=== PATIENT | male | born 1945 | race Caucasian/White ===

== ENCOUNTER 2016-09-12 13:05 | Emergency (ER) | payer OTHER ==
[2016-09-12 13:16] VITALS: BP 152/74; BMI 29.2
--- NOTE | 2016-09-12 14:23 | RAD ---
THORACIC SPINE RADIOGRAPHS CLINICAL HISTORY: 70-year-old male with pain in the mid back after lifting on Sunday. COMPARISON: None. FINDINGS: 3 views of the thoracic spine were obtained. Diffuse osteopenia with evidence of prior dionne tebroplasty at L1. No radiographic evidence of fracture or malalignment. The cervicothoracic junctio n is visualized on frontal radiographs only. Considering the limitations, vertebral body height and alignment are maintained. IMPRESSION: 1. No acute compression deformity or malalignment on screening thoracic spine radiographs. 2. Prior vertebroplasty at L1. Reported By:
[2016-09-12] MEDS ORDERED: DEMEROL INJ IM ONE (14:24)
[2016-09-12] MEDS ORDERED: ZOFRAN TAB 4 MG PO PRN (14:25)
== END 2016-09-12 14:45 | disposition home or self-care (01) ==
LOC: ER 13:20
DX: M54.5 Low back pain (principal)
CPT/HCPCS: 72072; 99282

== ENCOUNTER 2016-09-19 14:24 | Emergency (ER) | payer OTHER ==
[2016-09-19 14:29] VITALS: BP 160/85; BMI 29.5
[2016-09-19] MEDS ORDERED: DEMEROL INJ IM ONE (14:50)
--- NOTE | 2016-09-19 14:50 | DR.GENAD ---
HPI - PCP Primary Care Physician: stephanie - Complaint/Symptoms Chief Complaint:: sever pain in the lili. he was [place] - Nurses notes reviewed Nurses Notes Review: Yes - Source History Provided: Patient - Mode of Arrival Mode of Arrival: Ambulatory - Timing Onset of Chief Complaint: 09/16/16 Came on: Gradually - Duration Duration: Intermittent Duration: Weeks - Location Location: [facility] - Severity Severity: Moderate - Modifying Factors Worsens:: movement - Associated Signs and Symptoms Associated Signs and Symptoms: pain PMH - PMH Past Medical History: Yes Past Medical History: Asthma, COPD, Diabetes, Liver Disease Past Surgical History: Yes Surgical History: Cholecystectomy, Ortho Surgery - Family History History of Family Medical Conditions: No - Social History Does patient currently use any type of tobacco product: Yes Have you used tobacco products in the last 12 months: Yes Type of Tobacco Use: Cigarettes How many years tobacco product used: 40 Does any household member use tobacco: No Alcohol Use: None Do you use any recreational Drugs:: No Lives With: Family Lives Where: Home - infectious screening In the last 2 months have you had wt loss of >10#?: NO Have you had fever, night sweats or hemotysis?: No Have you traveled outside the country in the last 6 months?: No Isolation: Standard ROS - Review of Systems Constitutional: No Symptoms Reported Eyes: No Symptoms Reported ENTM: No Symptoms Reported Respiratoy: No Symptoms Reported Cardiovascular: No Symptoms Reported Gastrointestinal/Abdominal: No Symptoms Reported Genitourinary: No Symptoms Reported Neurological: No Symptoms Reported Musculoskeletal: Back Pain Integumentary: No Symptoms Reported Hematologic/Lymphatic: No Symptoms Reported Endocrine: No Symptoms Reported Psychiatric: No Symptoms Reported PE - Vital Signs Vitals: Pulse Rate 74 Respiratory Rate 16 Blood Pressure 160/85 O2 Sat by Pulse Oximetry 100 - General Limitations: No Limitations General Appearance: Alert, In No Apparent Distress - Head Head Exam: Normal Inspection - Eyes Eye exam: Normal Appearance, EOMI. negative: Scleral Icterus, Conjunctival Injection - ENT ENT Exam: Normal Exam External Ear Exam: Normal External Inspection - Neck Neck Exam: Normal Inspection, Full ROM, Trachea Midline - Chest Chest Inspection: Normal Inspection - Respiratory Respiratory Exam: Normal Lung Sounds Bilat. negative: Accessory Muscle Use, Respiratory Distress - Extremities Extremities Exam: Normal Inspection - Back Back Exam: Normal Inspection, Tenderness (T-7 area). negative: Full ROM - Neurologic Neurological Exam: Alert, Oriented X3, CN II-XII Intact - Psychiatric Psychiatric Exam: Normal Mood - Skin Skin Exam: Intact, Normal Color - Diagnosis Discharge Problem: Back pain Qualifiers: Back pain location: thoracic back pain Chronicity: chronic Back pain laterality : midline Qualified Code(s): M54.6 - Pain in thoracic spine; G89.29 - Other chronic pain - Discharge Plan Condition: Stable - Follow ups/Referrals Follow ups/Referrals: DENIZ BURGOS [Primary Care Provider] - 3 days - Instructions
[2016-09-19] MEDS ORDERED: BENADRYL INJ 50 MG VIAL IM ONE (14:53)
[2016-09-19] MEDS ORDERED: BENADRYL INJ 50 MG VIAL ONE (15:02)
[2016-09-19] MEDS ORDERED: DEMEROL INJ ONE (15:02)
== END 2016-09-19 15:19 | disposition home or self-care (01) ==
LOC: ER 14:34
DX: M54.6 Pain in thoracic spine (principal); G89.29 Other chronic pain
CPT/HCPCS: 96372; 99282; J1200; J2175

== ENCOUNTER → 2016-09-21 | Outpatient (CLI) | payer OTHER ==
[2016-09-19 14:29] VITALS: BP 160/85
[2016-09-21 16:08] LABS: BILIRUBIN,URINE NEGATIVE (NEGATIVE); BLOOD/HEMOGLOBIN,URINE NEGATIVE (NEGATIVE); GLUCOSE, URINE NEGATIVE (NEGATIVE); KETONES,URINE NEGATIVE (NEGATIVE); LEUKOCYTE ESTERASE ,URINE NEGATIVE (NEGATIVE); NITRITES,URINE NEGATIVE (NEGATIVE); PROTEIN,URINE NEGATIVE (NEGATIVE); UROBILINOGEN,URINE NORMAL (NORMAL)
[2016-09-21 16:09] LABS: BASOPHILS # (AUTO) 0.1 X10^3/uL (0.0-0.1); BASOPHILS % (AUTO) 0.8 % (0.2-1.0); EOSINOPHILS # (AUTO) 0.3 x10^3/uL (0.0-0.2); EOSINOPHILS % (AUTO) 2.1 % (0.9-2.9); HEMATOCRIT 37.1 % (42.0-54.0); HEMOGLOBIN 12.1 g/dL (13.5-18.0); LYMPHOCYTES # (AUTO) 2.4 X10^3/uL (1.3-2.9); LYMPHOCYTES % (AUTO) 19.8 % (21.0-51.0); MEAN CORPUSCULAR HEMOGLOBIN 24.7 pg (27.0-34.0); MEAN CORPUSCULAR HGB CONC 32.4 g/dL (33.0-35.0); MEAN CORPUSCULAR VOLUME 76.2 fL (80.0-100.0); MEAN PLATELET VOLUME 8.2 fL (7.4-11.0); MONOCYTES # (AUTO) 0.8 x10^3/uL (0.3-0.8); MONOCYTES % (AUTO) 6.5 % (0.0-13.0); NEUTROPHILS # (AUTO) 8.6 x10^3/uL (2.2-4.8); NEUTROPHILS % (AUTO) 70.8 % (42.0-75.0); PLATELET COUNT 275 X10^3/uL (150.0-450.0); RED BLOOD COUNT 4.88 X10^6/uL (4.7-6.0); RED CELL DISTRIBUTION WIDTH 19.3 % (11.6-16.5); WHITE BLOOD COUNT 12.2 X10^3/uL (3.6-10.0)
[2016-09-21 16:30] LABS: APPEARANCE,URINE CLEAR (CLEAR); BACTERIA,URINE NEGATIVE /HPF (NEGATIVE); COLOR,URINE YELLOW (YELLOW); RBC,URINE 0 /HPF (NEGATIVE); SQUAMOUS EPITHELIAL CELL,UR NEGATIVE /HPF (NEGATIVE)
[2016-09-21 16:31] LABS: HYPOCHROMASIA SLIGHT; PLATELET MORPHOLOGY COMMENT NORMAL (NORMAL)
[2016-09-21 16:32] LABS: ANISOCYTOSIS SLIGHT; MICROCYTOSIS SLIGHT
[2016-09-21 16:33] LABS: ALANINE AMINOTRANSFERASE 19 Units/L (12-78); ALBUMIN 3.9 g/dL (3.4-5.0); ALKALINE PHOSPHATASE 137 Units/L (46-116); ASPARTATE AMINO TRANSFERASE 14 Units/L (15-37); BLOOD UREA NITROGEN 16 mg/dL (7-18); CALCIUM 9.3 mg/dL (8.5-10.1); CARBON DIOXIDE 31.5 mmol/L (21-32); CHLORIDE 96 mmol/L (98-107); COR NA(FOR HYPERGLY) 135 mmol/L (136-145); CREATININE 1.26 mg/dL (0.70-1.30); GLUCOSE 115 mg/dL (65-99); SODIUM 135 mmol/L (136-145); TOTAL PROTEIN 8.3 g/dL (6.4-8.2); eGFR BLACK RACES > 60 (>60); eGFR NON BLACK RACES > 60 (>60)
== END ==
LOC: LAB 15:37
PROVIDERS: ATTEND Specialist
DX: Z01.818 Encounter for other preprocedural examination (principal); Z79.899 Other long term (current) drug therapy; Z11.8 Encounter for screening for other infectious and parasitic diseases; S22.060S Wedge compression fracture of T7-T8 vertebra, sequela; X58.XXXS Exposure to other specified factors, sequela
CPT/HCPCS: 36415; 80053; 81001; 85025; 87641

== ENCOUNTER 2016-09-24 18:30 | Inpatient (IN) | payer OTHER ==
[2016-09-24] MEDS ORDERED: ZOFRAN INJ 4 MG VIAL IVP STA (19:28)
[2016-09-24] MEDS ORDERED: DILAUDID INJ ONE (19:29)
[2016-09-24] MEDS ORDERED: ZOFRAN INJ 4 MG VIAL ONE (19:29)
[2016-09-24] MEDS ORDERED: DILAUDID INJ IVP ONE (19:29)
[2016-09-24] MEDS ORDERED: DUONEB 0.5 MG/3 MG NEB ONE (19:37)
--- NOTE | 2016-09-24 19:38 | DR.GENAD ---
HPI - PCP Primary Care Physician: stephanie - HPI Comment HPI Comment: PATIENT DIAGNOSE WITH T7 COMPRESSION FRACTURE DUE SURGERY IN AM. SEVERE PAIN MID BACK. NO NEW TRAUMA. INCREASING SOB WITH LOW O2 SATURATION. MEDICATION AT HOME NOT HELPING PAIN. HISTORY COPD AND ASTHMA. - Complaint/Symptoms Chief Complaint Doctors Comments: SEVERE LOWER BACK PAIN AND INCREASING SOB TIMES 2 DAYS. Chief Complaint:: patient stated he was told by dr escobar last week and and he scheduled surgery for in the morning here. patient stated he is in to much pain. - Nurses notes reviewed Nurses Notes Review: Yes - Source History Provided: Patient - Mode of Arrival Mode of Arrival: Ambulatory - Timing Onset of Chief Complaint: 08/23/16 Came on: Gradually - Duration Duration: Constant Duration: Days - Severity Severity: Severe PMH - PMH Past Medical History: Yes Past Medical History: Asthma, COPD, Diabetes, Liver Disease Past Surgical History: Yes Surgical History: Cholecystectomy, Ortho Surgery - Family History History of Family Medical Conditions: No - Social History Does patient currently use any type of tobacco product: Yes Have you used tobacco products in the last 12 months: Yes Type of Tobacco Use: Cigarettes How many years tobacco product used: 45 Does any household member use tobacco: No Alcohol Use: None Do you use any recreational Drugs:: No Lives With: Family Lives Where: Home - infectious screening In the last 2 months have you had wt loss of >10#?: NO Have you had fever, night sweats or hemotysis?: No Have you traveled outside the country in the last 6 months?: No Isolation: Standard ROS - Review of Systems Constitutional: Weakness, Fatigue. negative: Chills, Fever Eyes: No Symptoms Reported. negative: Eye Pain, Discharge ENTM: Hearing Loss (DECREASE HEARING.), Nose Congestion. negative: Ear Pain, Nose Discharge, Throat Pain Respiratoy: Productive Cough, Short of Breath, Wheezing. negative: Hemoptysis Cardiovascular: Chest Pain, Edema Gastrointestinal/Abdominal: Nausea. negative: Abdominal Pain, Diarrhea, Vomiting Genitourinary: No Symptoms Reported. negative: Dysuria, Frequency, Hematuria Neurological: Weakness. negative: Headache, Dizziness Musculoskeletal: Back Pain, Muscle Pain Integumentary: No Symptoms Reported, Dryness PE - Vital Signs Vitals: Temperature 98.7 F Pulse Rate 63 Respiratory Rate 16 Blood Pressure 140/68 O2 Sat by Pulse Oximetry 100 - General Limitations: No Limitations General Appearance: Alert - Head Head Exam: Normal Inspection - Eyes Eye exam: Normal Appearance - ENT ENT Exam: Normal External Ear Exam, Other (DECREASE HEARING.) External Ear Exam: Normal External Inspection TM/Canal Exam: Bilateral Normal Nose Exam: Normal Nose Exam Mouth Exam: Normal Inspection Throat Exam: Normal Inspection - Neck Neck Exam: Trachea Midline. negative: Tenderness, Meningismus, Lymphadenopathy - Chest Chest Inspection: Symmetric Chest Wall Rise - Respiratory Respiratory Exam: Respiratory Distress Respiratory Exam: Bilateral Wheezing, Bilateral Rhonchi, Upper Wheezing, Upper Rhonchi, Lower Wheezing, Lower Rhonchi - Cardiovascular Cardiovascular Exam: Regular Rate, Normal Rhythm, Normal Heart Sounds - Abdominal Exam Abdominal Exam: Normal Bowel Sounds, Soft. negative: Tenderness - Extremities Extremities Exam: Edema - Back Back Exam: Paraspinal Tenderness, Vertebral Tenderness (PAIN MID BACK/T7 COMPRESSION FRACTURE.) - Neurologic Neurological Exam: Alert, Oriented X3 - Psychiatric Psychiatric Exam: Anxious - Skin Skin Exam: Normal Color MDM - Additional Information Additional Information Obtained From: Family - Differential Diagnosis Differential Diagnosis: T7 COMPRESION FRACTURE, COPD EXACERBATION. CHF, ASTHMA, PR Course - Treatment Treatment: SEE ORDERS. IV PAIN MED AND NEB TREATMENT IN ED. SLIGHTLY IMPROVE. - Consultation Consultation Comments: DISCUSS PATIENT WITH DR. HAWLEY. HE ADMITTED PATIENT. - Education/Counseling Education/Counseling: Patient, Family, Education Educated On: Treatment, Diagnosis ROR - Labs Reviewed Laboratory Results Reviewed?: Yes Result Diagrams: 09/24/16 19:53 09/24/16 19:53 - XRAY XRAY Interpreted by: Radiologist XRAY Findings: REPORT DISCUSS WITH PATIENT AND HIS . - Diagnosis Discharge Problem: Intractable pain Traumatic compression fracture of T7 thoracic vertebra Qualifiers: Encounter type: initial encounter Fracture type: closed Qualified Code(s): S22.060A - Wedge compression fracture of T7-T8 vertebra, initial encounter for closed fracture CHF (congestive heart failure) Qualifiers: Congestive heart failure type: combined Congestive heart failure chronicity: acute on chronic Qualified Code(s): I50.43 - Acute on chronic combined systolic (congestive) and diastolic (congestive) heart failure - Discharge Plan Disposition: ADMITTED INPATIENT Condition: Stable - Follow ups/Referrals - Instructions
[2016-09-24] MEDS ORDERED: DUONEB 0.5 MG/3 MG ONE (19:40)
--- NOTE | 2016-09-24 19:53 | RAD ---
EXAM: Chest X-ray INDICATION: Chest pain COMPARISION: No prior TECHNIQUE: Single view FINDINGS: The lungs are clear and the lung volumes are within normal limits. No pleural effusion or pneumothor ax. The cardiac silhouette is mildly enlarged and there central vascular congestion. The regional s [place] is intact. IMPRESSION: There is mild cardiomegaly and central vascular congestion. Reported By:
[2016-09-24 20:02] LABS: BASOPHILS # (AUTO) 0.1 X10^3/uL (0.0-0.1); EOSINOPHILS # (AUTO) 0.2 x10^3/uL (0.0-0.2); HEMATOCRIT 35.7 % (42.0-54.0); HEMOGLOBIN 11.6 g/dL (13.5-18.0); LYMPHOCYTES # (AUTO) 2.4 X10^3/uL (1.3-2.9); LYMPHOCYTES % (AUTO) 19.5 % (21.0-51.0); MEAN CORPUSCULAR HEMOGLOBIN 24.9 pg (27.0-34.0); MEAN CORPUSCULAR HGB CONC 32.5 g/dL (33.0-35.0); MEAN CORPUSCULAR VOLUME 76.6 fL (80.0-100.0); MEAN PLATELET VOLUME 8.4 fL (7.4-11.0); MONOCYTES # (AUTO) 0.8 x10^3/uL (0.3-0.8); MONOCYTES % (AUTO) 6.6 % (0.0-13.0); NEUTROPHILS # (AUTO) 8.9 x10^3/uL (2.2-4.8); NEUTROPHILS % (AUTO) 70.9 % (42.0-75.0); PLATELET COUNT 259 X10^3/uL (150.0-450.0); RED BLOOD COUNT 4.66 X10^6/uL (4.7-6.0); RED CELL DISTRIBUTION WIDTH 19.4 % (11.6-16.5); WHITE BLOOD COUNT 12.5 X10^3/uL (3.6-10.0)
[2016-09-24 20:12] LABS: ALANINE AMINOTRANSFERASE 17 Units/L (12-78); ALBUMIN 3.7 g/dL (3.4-5.0); ALKALINE PHOSPHATASE 127 Units/L (46-116); ASPARTATE AMINO TRANSFERASE 14 Units/L (15-37); BLOOD UREA NITROGEN 16 mg/dL (7-18); CARBON DIOXIDE 26.9 mmol/L (21-32); CHLORIDE 99 mmol/L (98-107); CREATININE 1.06 mg/dL (0.70-1.30); GLUCOSE 106 mg/dL (65-99); SODIUM 134 mmol/L (136-145); TOTAL PROTEIN 8.1 g/dL (6.4-8.2); eGFR BLACK RACES > 60 (>60); eGFR NON BLACK RACES > 60 (>60)
[2016-09-24 20:17] LABS: ANISOCYTOSIS SLIGHT; HYPOCHROMASIA SLIGHT; MICROCYTOSIS SLIGHT; PLATELET MORPHOLOGY COMMENT NORMAL (NORMAL)
[2016-09-24] MEDS ORDERED: ZOFRAN INJ 4 MG VIAL IVP PRN (21:42)
[2016-09-24] MEDS ORDERED: DILAUDID PO SCH (22:00)
[2016-09-24] MEDS: DILAUDID INJ IVP SCH (23:31)
[2016-09-25] MEDS: DUONEB 0.5 MG/3 MG NEB SCH ×6 (01:01→21:07)
[2016-09-25 02:17] VITALS: BMI 21.9
[2016-09-25 05:19] LABS: BLOOD UREA NITROGEN 15 mg/dL (7-18); CALCIUM 9.2 mg/dL (8.5-10.1); CARBON DIOXIDE 29.1 mmol/L (21-32); CHLORIDE 100 mmol/L (98-107); COR NA(FOR HYPERGLY) 137 mmol/L (136-145); GLUCOSE 115 mg/dL (65-99); SODIUM 137 mmol/L (136-145); eGFR BLACK RACES > 60 (>60); eGFR NON BLACK RACES > 60 (>60)
[2016-09-25 05:44] LABS: BASOPHILS # (AUTO) 0.1 X10^3/uL (0.0-0.1); BASOPHILS % (AUTO) 0.5 % (0.2-1.0); EOSINOPHILS # (AUTO) 0.2 x10^3/uL (0.0-0.2); EOSINOPHILS % (AUTO) 1.8 % (0.9-2.9); HEMATOCRIT 34.7 % (42.0-54.0); HEMOGLOBIN 11.4 g/dL (13.5-18.0); LYMPHOCYTES # (AUTO) 1.8 X10^3/uL (1.3-2.9); LYMPHOCYTES % (AUTO) 16.2 % (21.0-51.0); MEAN CORPUSCULAR HEMOGLOBIN 24.8 pg (27.0-34.0); MEAN CORPUSCULAR HGB CONC 32.8 g/dL (33.0-35.0); MEAN CORPUSCULAR VOLUME 75.7 fL (80.0-100.0); MEAN PLATELET VOLUME 8.6 fL (7.4-11.0); MONOCYTES # (AUTO) 0.8 x10^3/uL (0.3-0.8); MONOCYTES % (AUTO) 6.9 % (0.0-13.0); NEUTROPHILS # (AUTO) 8.5 x10^3/uL (2.2-4.8); NEUTROPHILS % (AUTO) 74.6 % (42.0-75.0); PLATELET COUNT 237 X10^3/uL (150.0-450.0); RED BLOOD COUNT 4.58 X10^6/uL (4.7-6.0); RED CELL DISTRIBUTION WIDTH 18.9 % (11.6-16.5); WHITE BLOOD COUNT 11.4 X10^3/uL (3.6-10.0)
[2016-09-25] MEDS: DILAUDID INJ IVP SCH ×5 (05:47→21:10)
[2016-09-25 06:01] LABS: ANISOCYTOSIS SLIGHT; HYPOCHROMASIA SLIGHT; MICROCYTOSIS SLIGHT; PLATELET MORPHOLOGY COMMENT NORMAL (NORMAL)
--- NOTE | 2016-09-25 06:43 | RAD ---
AP Chest Indication: Shortness of breath Comparison: 09/24/2016 Findings: The trachea is midline. Heart size unchanged. Coarsening interstitium similar to prior examination. There is mild the increased retrocardiac opacity and linear opacities within the left lung base pote ntially representing atelectasis however developing on trait is not excluded clinical correlation is needed. No pleural effusion or pneumothorax. No acute osseous abnormality. Impression: 1.Slightly increased retrocardiac and linear opacities within the left lower lobe likely represents subsegmental atelectasis; however clinical correlation is needed to exclude acute infiltrate. 2.Stable mild cardiomegaly. Reported By:
[2016-09-25] MEDS ORDERED: LASIX IVP ONE ×2 (09:29→13:00)
--- NOTE | 2016-09-25 09:36 | DR.H&P ---
H&P - History & Physical for Day of: H&P Date: 09/24/16 - Chief Complaint Chief Complaint: BACK PAIN, SHORNESS OF BREATH - Allergies Allergies/Adverse Reactions: Allergies Allergy/AdvReac Type Severity Reaction Status Date / Time tolterodine [From Detrol] AdvReac Intermediate DIZZINESS Verified 09/24/16 20:30 - History of Present Illness History of Present Illness: IS A 70 YEAR OLD PATIENT OF WHO PRESENTED TO THE ER WITH COMPLAINTS OF SEVERE PAIN TO MID BACK AND SHORTNESS OF BREATH. PATIENT STATED THAT HE FELL 2 WEEKS AGO, BUT DENIED ANY RECENT TRAUMA OR INJURY THAT MAY BE CAUSING THE PAIN TO WORSEN. PATIENT STATED THAT HE SAW LAST WEEK, WHEN HE WAS DIAGNOSED WITH A T-7 COMPRESSION FX. PATIENT IS SCHEDULED FOR KYPHOPLASTY ON 09/25/16. HE HAS BEEN TAKING OXYCONTIN AND PERCOCET AT HOME, BUT THEY HAVE NOT RELIEVED HIS PAIN. PATIENT STATED THAT SYMPTOMS OF SHORTNESS OF BREATH BEGAN TWO DAYS PRIOR TO COMING TO THE ER/ PATIENT IS NOTED WITH PAST MEDICAL HISTORY OF COPD AND ASTHMA. ON ARRIVAL TO ER, VITALS WERE 98.7, 63, 16, 100, 140/68. LABS AND XRAYS WERE OBTAINED. CBC WNL EXCEPT WBC 12.5, HGB 11.6, HCT 35.7. CMP WNL EXCEPT SODIUM 134. AST 14, ALKALINE PHOSPHATASE 127. CHEST XRAY REPORTED MILD CARDIOMEGALY AND CENTAL VASCULAR CONGESTION. PATIENT WAS GIVEN DILAUDID IN ER. HE STATED THAT HIS PAIN HAD IMPROVED WITH THE DILAUDID. WE ADMITTED PATIENT FOR FURTHER EVALUATION AND TREATMENT. HE WILL HAVE SURGERY TODAY. WE WILL CONTINUE DILAUDID FOR PAIN. WE WILL START ZOFRAN FOR ANY NAUSEA AND DUONEBS FOR SHORNESS OF BREATH. WE WILL RECHECK LABS AND FOLLOW UP WITH PATIENT. - Past Medical History Past Medical History: Asthma, COPD, Depression, Diabetes, Liver Disease Additional Medical History: CATARACTS, ASCENDING AORTIC ANEURYSM, - Past Surgical History Surgical History: AAA Repair (RIGHT TOTAL HIP, CATARACT SURGERY ), Cholecystectomy, Ortho Surgery - Family History Family Medical History: Diabetes Mellitus, Cancer, Coronary Artery Disease - Social History Does patient currently use any type of tobacco product: Yes Have you used tobacco products in the last 12 months: Yes Type of Tobacco Use: Cigarettes How many years tobacco product used: 45 Does any household member use tobacco: No Alcohol Use: None Drug Use: None - Medications Home Medications: Citalopram 20 mg Tab [CELEXA 20 MG *] 20 mg PO HS 09/24/16 [History Confirmed ] Diclofenac Sodium (Topical) [VOLTAREN 1 % Gel *] 1 gm TD QID 09/24/16 [History Confirmed 09/24/16] Furosemide [Lasix] 40 mg PO BID 09/24/16 [History Confirmed 09/24/16] Latanoprost 0.005 % (Ophth) [Xalatan] 1 drop OP DAILY 09/24/16 [History Confirmed 09/24/16] Oxybutynin Chloride [Ditropan Xl] 10 mg PO HS 09/24/16 [History Confirmed ] Oxycodone HCl/Acetaminophen [Oxycodone/Acetaminophen 10-325 mg] 1 tab PO Q6H PRN 09/24/16 [History Confirmed 09/24/16] Tamsulosin HCl [Flomax] 0.4 mg PO HS 09/24/16 [History Confirmed 09/24/16] - Review of Systems Constitutional: No Symptoms Reported. denies: See HPI, Fever, Chills, Sweats, Weakness, Malaise, Other Eyes: No Symptoms Reported. denies: See HPI, Pain, Vision Change, Conjunctivae Inflammation, Eyelid Inflammation, Redness, Other ENT: No Symptoms Reported. denies: See HPI, Ear Pain, Ear Discharge, Nose Pain , Nose Discharge, Nose Congestion, Mouth Pain, Mouth Swelling, Throat Pain, Throat Swelling, Other Respiratory: See HPI, Shortness of Breath, Wheezing Cardiovascular: No Symptoms Reported. denies: Chest Pain, See HPI, Palpitations , Orthopnea, Paroxysmal Noc. Dyspnea, Edema, Light Headedness, Other Gastrointestinal: No Symptoms Reported. denies: See HPI, Nausea, Vomiting, Abdominal Pain, Diarrhea, Constipation, Melena, Hematochezia, Other Genitourinary: No Symptoms Reported. denies: See HPI, Dysuria, Frequency, Incontinence, Hematuria, Retention, Other Musculoskeletal: See HPI, Back Pain Skin: No Symptoms Reported. denies: See HPI, Rash, Lesions, Jaundice, Bruising , Wound, Ecchymosis, Other Neurological: No Symptoms Reported. denies: See HPI, Weakness, Numbness, Incoordination, Change in Speech, Confusion, Seizures, Other - Physical Exam Vital Signs: Temperature 97.9 F Pulse Rate [Right Brachial] 68 Pulse Rate 63 Respiratory Rate 20 Blood Pressure [Right Arm] 147/68 O2 Sat by Pulse Oximetry 97 Oriented: Normal Eyes: Normal. negative: Blurred Vision, Diplopia, Discharge, Pain, Redness, Photophobia, Other Ear: Normal. negative: Right, Left, Swelling, Ecchymosis, Hemotypanum, Abrasion , Laceration Nose: Normal Throat: Normal. negative: Tonsillar Hypertrophy, Red, Exudate, Dry, Other Respiratory: Wheezes Throughout. negative: Clear Throughout, Diminished Throughout, Rhonchi Throughout, Rales Throughout, RUL Clear, RML Clear, RLL Clear, VANNA Clear, LML Clear, LLL Clear, RUL Diminished, RML Diminished, RLL Diminished, VANNA Diminished, LML Diminished, LLL Diminished, RUL Absent, RML Absent, RLL Absent, VANNA Absent, LML Absent, LLL Absent, RUL Rhonchi, RML Rhonchi , RLL Rhonchi, VANNA Rhonchi, LML Rhonchi, LLL Rhonchi, RUL Insp. Wheeze, RML Insp. Wheeze, RLL Insp. Wheeze, VANNA Insp.Wheeze, LML Insp.Wheeze, LLL Insp.Wheeze, RUL Exp. Wheeze, RML Exp. Wheeze, RLL Exp. Wheeze, VANNA Exp. Wheeze , LML Exp. Wheeze, LLL Exp. Wheeze, RUL Rales, RML Rales, RLL Rales, VANNA Rales, LML Rales, LLL Rales, RUL Rub, RML Rub, RLL Rub, VANNA Rub, LML Rub, LLL Rub, RUL Squeak, RML Squeak, RLL Squeak, VANNA Squeak, LML Squeak, LLL Squeak Cardiovascular: Normal. negative: Tachycardia, Bradycardia, Irregular, S3, S4, Systolic, Diastolic, Murmur, Edema, Other : Normal. negative: Dysuria, Hematuria, Frequency, Discharge, Testicular Pain , Bleeding, , Other Auscultation: Bowel Sounds: Normal. negative: Bruit, Absent, Increased, Decreased, High Pitched, Other Palpation: Normal Tenderness: Normal. negative: Diffuse, RUQ, RLQ, LUQ, LLQ, Epigastric, Periumbilical, Suprapubic, Mild, Moderate, Severe, Rebound, Guarding, Rigidity, Other Skin: Normal. negative: Decreased Turgur, Rash, Papular, Macular, Maculopapular , Vesicular, Pustular, Petechial, Red, Tender, Hot, Diaphoresis, Wound, Bruising , Ecchymosis, Other Musculoskeletal: Back:Thoracic, Tender, Instability Psychiatric: Normal. negative: Anxiety, Depression, Agitation, Other Mood Description: Calm. negative: Angry, Apathetic, Depressed, Fearful, Flat, Happy, Hostile, Sad, Suspicious, Withdrawn, Anxious, Appropriate, Labile Affect: Normal Speech Pattern: Clear - Assessment/Plan (1) Intractable pain Status: Acute Plan: DILAUDID 2MG IV Q6H, CONTINUE TO MONITOR (2) Traumatic compression fracture of T7 thoracic vertebra Qualifiers: Encounter type: initial encounter Fracture type: closed Fracture healing : F Qualified Code(s): S22.060A - Wedge compression fracture of T7-T8 vertebra , initial encounter for closed fracture Status: Acute Plan: KYPHOPLASTY PLANNED (3) CHF (congestive heart failure) Qualifiers: Congestive heart failure type: combined Congestive heart failure chronicity : acute on chronic Qualified Code(s): I50.43 - Acute on chronic combined systolic (congestive) and diastolic (congestive) heart failure Status: Acute Plan: DUONEBS, CHEST XRAY, CONTINUE TO MONITOR
[2016-09-25] MEDS ORDERED: D5 LR 1000 ML 1,000 ML IV ONE (09:50)
[2016-09-25] MEDS ORDERED: NS 50 ML IV + SPIKE MINIBAG* 50 ML IV ONE (09:50)
[2016-09-25] MEDS ORDERED: ANCEF VIAL 1 GM ONE (09:51)
[2016-09-25] MEDS ORDERED: MARCAINE 0.25% INJ ONE (10:06)
[2016-09-25] MEDS ORDERED: DILAUDID INJ ONE (10:22)
[2016-09-25] MEDS ORDERED: FENTANYL INJ 100 mcg ONE (10:32)
[2016-09-25] MEDS ORDERED: XYLOCAINE 1% and EPINEPHRINE 1:100,000 ONE (10:40)
[2016-09-25] MEDS ORDERED: PATIENT'S HOME MEDICATION (Spironolactone [Spironolactone] 1 TAB) PO SCH (14:00)
[2016-09-25] MEDS ORDERED: URSODIOL PO SCH (14:00)
[2016-09-25] MEDS ORDERED: HumuLIN R SUBCUT PRN (14:03)
--- NOTE | 2016-09-25 14:47 | PCM.PROG ---
Progress Note - Progress Note for Day of Date: 09/25/16 - Subjective Subjective: IS ALERT AND ORIENTED ON MORNING ROUNDS. HE COMPLAINS OF BACK PAIN, BUT STATES THAT IT HAS IMPROVED SINCE HE HAS BEEN RECEIVING THE PAIN MEDICATION. HE IS SCHEDULED FOR A KYPHOPLASTY THIS MORNING WITH . HE IS NOTED WITH SOME SHORTNESS OF BREATH. WHEEZING IS NOTED BILATERALLY. VITALS ON MORNING ROUNDS ARE 97.9, 68, 20, 92%, 147/68. LABS ARE WNL EXCEPT WBC 11.4, HBG 11.4, HCT 34.7, GLUCOSE 115. WE WILL GIVE PATIENT A BREATHING TREATMENT AND A DOSE OF LASIX 40MG IV BEFORE SURGERY. WE WILL RECHECK LABS AND FOLLOW UP WITH PATIENT IN AM. - Past Medical Family Social History Past Med/Fam/Surg Hx: No changes since H&P Allergies: Allergies tolterodine [From Detrol] Adverse Reaction (Intermediate, Verified 09/24/16 20: 30) DIZZINESS - Review of Systems ROS: No change since H&P - Vital Signs and I&O's Vital Signs: Temperature 97.3 F Pulse Rate [Right Brachial] 68 Pulse Rate 60 Respiratory Rate 21 Blood Pressure [Right Arm] 147/68 Blood Pressure 132/63 O2 Sat by Pulse Oximetry 95 Intake and Output: Intake & Output 09/23/16 09/24/16 09/25/16 09/26/16 11:59 11:59 11:59 11:59 Intake Total 0 Output Total 1100 Balance -1100 - Physical Exam Oriented: Normal Eyes: Normal. negative: Blurred Vision, Diplopia, Discharge, Pain, Redness, Photophobia, Other Ear: Normal. negative: Right, Left, Swelling, Ecchymosis, Hemotypanum, Abrasion , Laceration Nose: Normal Throat: Normal. negative: Tonsillar Hypertrophy, Red, Exudate, Dry, Other Respiratory: Right, Left, Wheezes. negative: Normal, Generalized, Superior, Inferior, Diminished, Rales, Rhonchi, OTHER Cardiovascular: Normal. negative: Tachycardia, Bradycardia, Irregular, S3, S4, Systolic, Diastolic, Murmur, Edema, Other : Normal. negative: Dysuria, Hematuria, Frequency, Discharge, Testicular Pain , Bleeding, , Other Auscultation: Bowel Sounds: Normal. negative: Bruit, Absent, Increased, Decreased, High Pitched, Other Tenderness: Normal. negative: Diffuse, RUQ, RLQ, LUQ, LLQ, Epigastric, Periumbilical, Suprapubic, Mild, Moderate, Severe, Rebound, Guarding, Rigidity, Other Skin: Normal. negative: Decreased Turgur, Rash, Papular, Macular, Maculopapular , Vesicular, Pustular, Petechial, Red, Tender, Hot, Diaphoresis, Wound, Bruising , Ecchymosis, Other Musculoskeletal: Back:Thoracic, Tender, Instability Psychiatric: Normal. negative: Anxiety, Depression, Agitation, Other Mood Description: Calm. negative: Angry, Apathetic, Depressed, Fearful, Flat, Happy, Hostile, Sad, Suspicious, Withdrawn, Anxious, Appropriate, Labile Affect: Normal Speech Pattern: Clear - Laboratory and Diagnostics Result Diagrams: 09/25/16 04:05 09/25/16 04:05 Labs: Laboratory WBC 11.4 X10^3/uL (3.6-10.0) H 09/25/16 04:05 RBC 4.58 X10^6/uL (4.7-6.0) L 09/25/16 04:05 Hgb 11.4 g/dL (13.5-18.0) L 09/25/16 04:05 Hct 34.7 % (42.0-54.0) L 09/25/16 04:05 MCV 75.7 fL (80.0-100.0) L 09/25/16 04:05 MCH 24.8 pg (27.0-34.0) L 09/25/16 04:05 MCHC 32.8 g/dL (33.0-35.0) L 09/25/16 04:05 RDW 18.9 % (11.6-16.5) H 09/25/16 04:05 Plt Count 237 X10^3/uL (150.0-450.0) 09/25/16 04:05 Plt Count Comment Adequate (ADEQUATE) 09/25/16 04:05 MPV 8.6 fL (7.4-11.0) 09/25/16 04:05 Neut % 74.6 % (42.0-75.0) 09/25/16 04:05 Lymph % 16.2 % (21.0-51.0) L 09/25/16 04:05 [place] % 6.9 % (0.0-13.0) 09/25/16 04:05 Eos % 1.8 % (0.9-2.9) 09/25/16 04:05 Baso % 0.5 % (0.2-1.0) 09/25/16 04:05 Neut # 8.5 x10^3/uL (2.2-4.8) H 09/25/16 04:05 Lymph # 1.8 X10^3/uL (1.3-2.9) 09/25/16 04:05 [place] # 0.8 x10^3/uL (0.3-0.8) 09/25/16 04:05 Eos # 0.2 x10^3/uL (0.0-0.2) 09/25/16 04:05 Baso # 0.1 X10^3/uL (0.0-0.1) 09/25/16 04:05 Absolute Nucleated RBC 0.0 /100WBC 09/25/16 04:05 Plt Morphology Comment Normal (NORMAL) 09/25/16 04:05 RBC Morphology Abnormal (NORMAL) 09/25/16 04:05 Hypochromasia Slight A 09/25/16 04:05 Anisocytosis Slight A 09/25/16 04:05 Microcytosis Slight A 09/25/16 04:05 Sodium 137 mmol/L (136-145) 09/25/16 04:05 Corrected Sodium 137 mmol/L (136-145) 09/25/16 04:05 Potassium 4.1 mmol/L (3.5-5.1) 09/25/16 04:05 Chloride 100 mmol/L (98-107) 09/25/16 04:05 Carbon Dioxide 29.1 mmol/L (21-32) 09/25/16 04:05 BUN 15 mg/dL (7-18) 09/25/16 04:05 Creatinine 1.00 mg/dL (0.70-1.30) 09/25/16 04:05 Est GFR (MDRD) Af Amer > 60 (>60) 09/25/16 04:05 Est GFR (MDRD) Non-Af > 60 (>60) 09/25/16 04:05 Glucose 115 mg/dL (65-99) H 09/25/16 04:05 Calcium 9.2 mg/dL (8.5-10.1) 09/25/16 04:05 Corrected Calcium TNP 09/24/16 19:53 Total Bilirubin 0.40 mg/dL (0.2-1.0) 09/24/16 19:53 AST 14 Units/L (15-37) L 09/24/16 19:53 ALT 17 Units/L (12-78) 09/24/16 19:53 Alkaline Phosphatase 127 Units/L (46-116) H 09/24/16 19:53 Total Protein 8.1 g/dL (6.4-8.2) 09/24/16 19:53 Albumin 3.7 g/dL (3.4-5.0) 09/24/16 19:53 Globulin 4.4 g/dL (2.5-4.5) 09/24/16 19:53 Albumin/Globulin Ratio 0.8 Ratio (1.1-2.1) L 09/24/16 19:53 - Plan (1) Intractable pain Status: Acute Plan: DILAUDID 2MG IV Q6H, CONTINUE TO MONITOR (2) Traumatic compression fracture of T7 thoracic vertebra Status: Acute Qualifiers: Encounter type: initial encounter Fracture type: closed Fracture healing : F Qualified Code(s): S22.060A - Wedge compression fracture of T7-T8 vertebra , initial encounter for closed fracture Plan: KYPHOPLASTY PLANNED (3) CHF (congestive heart failure) Status: Acute Qualifiers: Congestive heart failure type: combined Congestive heart failure chronicity : acute on chronic Qualified Code(s): I50.43 - Acute on chronic combined systolic (congestive) and diastolic (congestive) heart failure Plan: DUONEBS, CHEST XRAY, CONTINUE TO MONITOR (4) Shortness of breath Status: Acute Plan: LASIX 40MG IV X 1, DUONEBS, CONTINUE TO MONITOR
[2016-09-25] MEDS ORDERED: VERSED ONE (15:25)
[2016-09-25] MEDS ORDERED: DIPRIVAN VIAL ONE (15:25)
[2016-09-25] MEDS: ZYLOPRIM PO SCH ×2 (16:58→17:00)
[2016-09-25] MEDS: VOLTAREN 1 % GEL MULTI DOSE TUBE TOP SCH ×3 (16:58→20:55)
[2016-09-25] MEDS: XALATAN OP SCH (17:02)
[2016-09-25] MEDS ORDERED: SNACK - Diabetic Appropriate PO SCH (20:00)
[2016-09-25] MEDS: ACTIGALL PO SCH ×2 (20:54→21:09)
[2016-09-25] MEDS: LASIX PO SCH (20:54)
[2016-09-25] MEDS: PriLOSEC PO SCH (20:54)
[2016-09-25] MEDS ORDERED: FLOMAX PO SCH (21:00)
[2016-09-25] MEDS ORDERED: CYMBALTA PO SCH (21:00)
[2016-09-25] MEDS ORDERED: PATIENT'S HOME MEDICATION (Oxybutynin Chloride [Ditropan Xl] 10 MG) PO SCH (21:00)
[2016-09-25] MEDS ORDERED: CELEXA PO SCH (21:00)
[2016-09-25] MEDS ORDERED: DITROPAN TAB 5 MG PO SCH (21:00)
[2016-09-26] MEDS: DUONEB 0.5 MG/3 MG NEB SCH ×4 (00:42→11:59)
[2016-09-26] MEDS: DILAUDID INJ IVP SCH ×2 (04:12→10:18)
[2016-09-26 05:05] LABS: BASOPHILS % (AUTO) 0.4 % (0.2-1.0); EOSINOPHILS # (AUTO) 0.1 x10^3/uL (0.0-0.2); EOSINOPHILS % (AUTO) 1.1 % (0.9-2.9); HEMATOCRIT 35.4 % (42.0-54.0); HEMOGLOBIN 11.5 g/dL (13.5-18.0); LYMPHOCYTES # (AUTO) 1.5 X10^3/uL (1.3-2.9); LYMPHOCYTES % (AUTO) 15.7 % (21.0-51.0); MEAN CORPUSCULAR HEMOGLOBIN 24.7 pg (27.0-34.0); MEAN CORPUSCULAR HGB CONC 32.5 g/dL (33.0-35.0); MEAN PLATELET VOLUME 8.6 fL (7.4-11.0); MONOCYTES # (AUTO) 0.8 x10^3/uL (0.3-0.8); MONOCYTES % (AUTO) 7.8 % (0.0-13.0); NEUTROPHILS # (AUTO) 7.4 x10^3/uL (2.2-4.8); PLATELET COUNT 253 X10^3/uL (150.0-450.0); RED BLOOD COUNT 4.65 X10^6/uL (4.7-6.0); WHITE BLOOD COUNT 9.8 X10^3/uL (3.6-10.0)
[2016-09-26 05:09] LABS: ALANINE AMINOTRANSFERASE 17 Units/L (12-78); ALBUMIN 3.4 g/dL (3.4-5.0); ALKALINE PHOSPHATASE 130 Units/L (46-116); ASPARTATE AMINO TRANSFERASE 13 Units/L (15-37); BLOOD UREA NITROGEN 15 mg/dL (7-18); CALCIUM 9.1 mg/dL (8.5-10.1); CARBON DIOXIDE 30.3 mmol/L (21-32); CHLORIDE 101 mmol/L (98-107); COR NA(FOR HYPERGLY) 140 mmol/L (136-145); GLUCOSE 131 mg/dL (65-99); SODIUM 139 mmol/L (136-145); TOTAL PROTEIN 7.7 g/dL (6.4-8.2); eGFR BLACK RACES > 60 (>60); eGFR NON BLACK RACES > 60 (>60)
[2016-09-26] MEDS: ACTIGALL PO SCH ×2 (05:10→09:19)
[2016-09-26 05:51] LABS: ANISOCYTOSIS SLIGHT; HYPOCHROMASIA SLIGHT; MICROCYTOSIS SLIGHT; PLATELET MORPHOLOGY COMMENT NORMAL (NORMAL)
[2016-09-26] MEDS ORDERED: ALDACTONE TAB 25 MG PO SCH (09:00)
[2016-09-26] MEDS ORDERED: CYMBALTA PO SCH (09:00)
[2016-09-26] MEDS: XALATAN OP SCH (09:02)
[2016-09-26] MEDS: ZYLOPRIM PO SCH (09:02)
[2016-09-26] MEDS: LASIX PO SCH (09:02)
[2016-09-26] MEDS: PriLOSEC PO SCH (09:02)
[2016-09-26] MEDS: VOLTAREN 1 % GEL MULTI DOSE TUBE TOP SCH ×2 (09:03→14:55)
[2016-09-26] MEDS ORDERED: PATIENT'S HOME MEDICATION PO PRN (09:24)
[2016-09-26] MEDS ORDERED: MILK OF MAGNESIA PO SCH (11:00)
--- NOTE | 2016-09-26 11:23 | PCM.PROG ---
Progress Note - Progress Note for Day of Date: 09/26/16 - Subjective Subjective: IS ALERT AND ORIENTED ON MORNING ROUNDS. HE COMPLAINS OF BACK PAIN THAT HAS IMPROVED SOME SINCE YESTERDAY. PATIENT IS S/P KYPHOPLASTY WITH YESTERDAY. ON EXAMINATION, LUNGS ARE CLEAR TO AUSCULTATION. VITALS ON MORNING ROUNDS ARE 97.9, 74, 20, 93, 135/70. LABS ARE WNL EXCEPT HBG 11.5, HCT 35.4, GLUCOSE 131, AST 13, ALKALINE PHOSPHATASE 130. WE WILL CONSULT PHYSICAL THERAPY TO EVALUATE AND WALK PATIENT. PATIENT HAS USED [facility] IN THE PAST, SO WE WILL TRY TO ARRANGE FOR THEM TO SEE HIM AFTER DISCHARGE. WE WILL RECHECK LABS AND FOLLOW UP WITH PATIENT IN AM. - Past Medical Family Social History Past Med/Fam/Surg Hx: No changes since H&P Allergies: Allergies tolterodine [From Detrol] Adverse Reaction (Intermediate, Verified 09/24/16 20: 30) DIZZINESS - Review of Systems ROS: No change since H&P - Vital Signs and I&O's Vital Signs: Temperature 97.9 F Pulse Rate [Right Brachial] 74 Pulse Rate 83 Respiratory Rate 20 Blood Pressure [Right Arm] 135/70 Blood Pressure 132/63 O2 Sat by Pulse Oximetry 94 Intake and Output: Intake & Output 09/23/16 09/24/16 09/25/16 09/26/16 11:59 11:59 11:59 11:59 Intake Total 0 1020 Output Total 1100 500 Balance -1100 520 - Physical Exam Oriented: Normal Eyes: Normal. negative: Blurred Vision, Diplopia, Discharge, Pain, Redness, Photophobia, Other Ear: Normal. negative: Right, Left, Swelling, Ecchymosis, Hemotypanum, Abrasion , Laceration Nose: Normal Throat: Normal. negative: Tonsillar Hypertrophy, Red, Exudate, Dry, Other Respiratory: Right, Left, Wheezes. negative: Normal, Generalized, Superior, Inferior, Diminished, Rales, Rhonchi, OTHER Cardiovascular: Normal. negative: Tachycardia, Bradycardia, Irregular, S3, S4, Systolic, Diastolic, Murmur, Edema, Other : Normal. negative: Dysuria, Hematuria, Frequency, Discharge, Testicular Pain , Bleeding, , Other Auscultation: Bowel Sounds: Normal. negative: Bruit, Absent, Increased, Decreased, High Pitched, Other Palpation: Normal Tenderness: Normal. negative: Diffuse, RUQ, RLQ, LUQ, LLQ, Epigastric, Periumbilical, Suprapubic, Mild, Moderate, Severe, Rebound, Guarding, Rigidity, Other Skin: Normal. negative: Decreased Turgur, Rash, Papular, Macular, Maculopapular , Vesicular, Pustular, Petechial, Red, Tender, Hot, Diaphoresis, Wound, Bruising , Ecchymosis, Other Musculoskeletal: Back:Thoracic, Tender, Instability Psychiatric: Normal. negative: Anxiety, Depression, Agitation, Other Mood Description: Calm. negative: Angry, Apathetic, Depressed, Fearful, Flat, Happy, Hostile, Sad, Suspicious, Withdrawn, Anxious, Appropriate, Labile Affect: Normal Speech Pattern: Clear - Laboratory and Diagnostics Result Diagrams: 09/26/16 04:00 09/26/16 04:00 Labs: Laboratory WBC 9.8 X10^3/uL (3.6-10.0) 09/26/16 04:00 RBC 4.65 X10^6/uL (4.7-6.0) L 09/26/16 04:00 Hgb 11.5 g/dL (13.5-18.0) L 09/26/16 04:00 Hct 35.4 % (42.0-54.0) L 09/26/16 04:00 MCV 76.0 fL (80.0-100.0) L 09/26/16 04:00 MCH 24.7 pg (27.0-34.0) L 09/26/16 04:00 MCHC 32.5 g/dL (33.0-35.0) L 09/26/16 04:00 RDW 19.0 % (11.6-16.5) H 09/26/16 04:00 Plt Count 253 X10^3/uL (150.0-450.0) 09/26/16 04:00 Plt Count Comment Adequate (ADEQUATE) 09/26/16 04:00 MPV 8.6 fL (7.4-11.0) 09/26/16 04:00 Neut % 75.0 % (42.0-75.0) 09/26/16 04:00 Lymph % 15.7 % (21.0-51.0) L 09/26/16 04:00 Andrews % 7.8 % (0.0-13.0) 09/26/16 04:00 Eos % 1.1 % (0.9-2.9) 09/26/16 04:00 Baso % 0.4 % (0.2-1.0) 09/26/16 04:00 Neut # 7.4 x10^3/uL (2.2-4.8) H 09/26/16 04:00 Lymph # 1.5 X10^3/uL (1.3-2.9) 09/26/16 04:00 Andrews # 0.8 x10^3/uL (0.3-0.8) 09/26/16 04:00 Eos # 0.1 x10^3/uL (0.0-0.2) 09/26/16 04:00 Baso # 0.0 X10^3/uL (0.0-0.1) 09/26/16 04:00 Absolute Nucleated RBC 0.1 /100WBC 09/26/16 04:00 Plt Morphology Comment Normal (NORMAL) 09/26/16 04:00 RBC Morphology Abnormal (NORMAL) 09/26/16 04:00 Hypochromasia Slight A 09/26/16 04:00 Anisocytosis Slight A 09/26/16 04:00 Microcytosis Slight A 09/26/16 04:00 Sodium 139 mmol/L (136-145) 09/26/16 04:00 Corrected Sodium 140 mmol/L (136-145) 09/26/16 04:00 Potassium 3.8 mmol/L (3.5-5.1) 09/26/16 04:00 Chloride 101 mmol/L (98-107) 09/26/16 04:00 Carbon Dioxide 30.3 mmol/L (21-32) 09/26/16 04:00 BUN 15 mg/dL (7-18) 09/26/16 04:00 Creatinine 1.00 mg/dL (0.70-1.30) 09/26/16 04:00 Est GFR (MDRD) Af Amer > 60 (>60) 09/26/16 04:00 Est GFR (MDRD) Non-Af > 60 (>60) 09/26/16 04:00 Glucose 131 mg/dL (65-99) H 09/26/16 04:00 Calcium 9.1 mg/dL (8.5-10.1) 09/26/16 04:00 Corrected Calcium TNP 09/26/16 04:00 Total Bilirubin 0.20 mg/dL (0.2-1.0) 09/26/16 04:00 AST 13 Units/L (15-37) L 09/26/16 04:00 ALT 17 Units/L (12-78) 09/26/16 04:00 Alkaline Phosphatase 130 Units/L (46-116) H 09/26/16 04:00 Total Protein 7.7 g/dL (6.4-8.2) 09/26/16 04:00 Albumin 3.4 g/dL (3.4-5.0) 09/26/16 04:00 Globulin 4.3 g/dL (2.5-4.5) 09/26/16 04:00 Albumin/Globulin Ratio 0.8 Ratio (1.1-2.1) L 09/26/16 04:00 - Plan (1) Intractable pain Status: Acute Plan: DILAUDID 2MG IV Q6H, CONTINUE TO MONITOR (2) Traumatic compression fracture of T7 thoracic vertebra Status: Acute Qualifiers: Encounter type: initial encounter Fracture type: closed Fracture healing : F Qualified Code(s): S22.060A - Wedge compression fracture of T7-T8 vertebra , initial encounter for closed fracture Plan: S/P KYPHOPLASTY, CONTINUE DILAUDID, CONTINUE TO MONITOR (3) CHF (congestive heart failure) Status: Acute Qualifiers: Congestive heart failure type: combined Congestive heart failure chronicity : acute on chronic Qualified Code(s): I50.43 - Acute on chronic combined systolic (congestive) and diastolic (congestive) heart failure Plan: DUONEBS, CHEST XRAY, CONTINUE TO MONITOR (4) Shortness of breath Status: Acute Plan: DUONEBS, CONTINUE TO MONITOR
[2016-09-26 15:01] VITALS: BP 122/74
[2016-09-26] MEDS ORDERED: COLACE CAP 100 MG PO SCH (21:00)
== END 2016-09-26 14:50 | disposition home health service (06) | DRG 515 ==
LOC: ER 18:44 → MED/SURG 21:28
PROVIDERS: ADMIT Internal Medicine; ATTEND Internal Medicine
PROC: 0PU43JZ Supplement Thoracic Vertebra with Synthetic Substitute, Percutaneous Approach (ICD-10-PCS; 2016-09-25)
PROC: 0PS43ZZ Reposition Thoracic Vertebra, Percutaneous Approach (ICD-10-PCS; principal; 2016-09-25 11:15)
DX: M54.6 Pain in thoracic spine (principal); M48.54XA Collapsed vertebra, not elsewhere classified, thoracic region, initial encounter for fracture; J44.1 Chronic obstructive pulmonary disease with (acute) exacerbation; I50.43 Acute on chronic combined systolic (congestive) and diastolic (congestive) heart failure; R06.02 Shortness of breath; I51.7 Cardiomegaly; R26.89 Other abnormalities of gait and mobility; W18.39XA Other fall on same level, initial encounter
CPT/HCPCS: 36415; 71010; 76000; 80048; 80053; 85025; 94640; 94760; 96365; 96374; 96375; 97535; 99100; 99284; A4222; S0020; J0690; J1170; J1815; J1940; J2001; J2250; J2405; J3010; J3490; J7120; J7620